=== PATIENT | female | born 1965 | race African-American/Black ===

== ENCOUNTER 2016-07-13 13:22 | Emergency (ER) | payer OTHER ==
--- NOTE | 2016-07-13 13:57 | ED Physician Documentation ---
Headache - HPI Stated Complaint: headache Chief Complaint: Headache Timing: abrupt, still present Severity: moderate Quality: similar to previous Associated Symptoms: sensitivity to light. denies: fever, chills Exacerbated By: light, noise Further Comments: yes (several hour history of migrain headache. Took some tramadol earlier today and did not seem to help. No precipitating factor noted. Worse with light and noise exposure. Has been months since her last headache. Feels like visegrip around the neck, bilateral. Nauseated.) - ROS NEURO/PSYCH: denies: confusion, anxiety all systems neg except as marked: Yes - PAST HX Medical History: hypertension, other (migrain headache, OA) Allergies/Adverse Reactions: Allergies Allergy/AdvReac Type Severity Reaction Status Date / Time No Known Allergies Allergy Verified 03/11/16 14:58 Home Medications: Ambulatory Orders Medication Instructions Recorded Azithromycin [Zithromax] 250 mg PO DAILY #6 tablet 03/11/16 Butalb/Acetaminophen/Caffeine 1 each PO QID PRN #10 capsule 03/11/16 [Fioricet 50-300-40 mg Capsule] Promethazine HCl [Phenergan] 25 mg PO QID PRN #10 tablet 03/11/16 - SOCIAL HX Smoking History: less than 1 pack/day (1/2 ppd) Alcohol Use: none Drug Use: none - Family HX Family History: none - VITAL SIGNS Vital Signs: Vital Signs Temp Pulse Resp BP Pulse Ox 97.8 F 68 16 91/52 97 07/13/16 13:25 07/13/16 13:25 07/13/16 13:25 07/13/16 13:25 07/13/16 13:25 Progress - Progress Progress: 14:38 About 50% of headache gone, feels that she can go home and rest. Nausea improved. ED Results Lab/Radiology - Orders Orders: ED Orders Category Date Time Status Haloperidol Lactate [Haldol] Med 07/13/16 14:05 Discontinued 10 mg IM NOW ONE Ketorolac Tromethamine [Toradol] Med 07/13/16 14:05 Discontinued 60 mg IM NOW ONE Ondansetron HCl/Pf [Zofran 4 mg/2 ml] Med 07/13/16 14:05 Discontinued 8 mg IM NOW ONE Headache Physical Exam - EXAM General Appearance: alert, moderate distress EENT: no facial swelling, eyes nml inspection, PERRL, photophobia. No: tender temporal artery, pain over sinuses, abnml papilledema Neck: normal inspection, thyroid normal, supple Respiratory: no resp distress, chest non-tender, breath sounds normal. No: wheezes, rales, rhonchi CVS: reg. rate & rhythm, heart sounds nml, murmur Abdomen: non-tender, no organomegaly, nml bowel sounds Skin: color nml, no rash - NEURO/PSYCH Higher Functions: alert, oriented x3, nml speech, mood/affect nml. denies: confused Cranial: nml as tested, no evidence of acute CVA Cerebellar: nml as tested Sensorimotor: motor nml, sensation nml. denies: weakness Discharge Clincal Impression: Migraine Additional Instructions: Home and rest in a quiet room. Do not drive for several hours. Continue with your home medications. Home Medications: Ambulatory Orders Azithromycin [Zithromax] 250 mg PO DAILY #6 tablet 03/11/16 Butalb/Acetaminophen/Caffeine [Fioricet 50-300-40 mg Capsule] 1 each PO QID PRN #10 capsule 03/11/16 Promethazine HCl [Phenergan] 25 mg PO QID PRN #10 tablet 03/11/16 Condition: Stable Disposition: 01 HOME, SELF-CARE Decision to Admit: NO Date of Decison to Admit: 07/13/16 Decision Time: 14:54
[2016-07-13] MEDS ORDERED: HALOPERIDOL LACTATE 5 MG/ML VIAL IM ONE (14:05)
[2016-07-13] MEDS ORDERED: KETOROLAC TROMETHAMINE 60 MG/2 ML VIAL IM ONE (14:05)
[2016-07-13] MEDS ORDERED: ONDANSETRON HCL/PF 4 MG/ 2ML VIAL IM ONE (14:05)
[2016-07-13 15:11] VITALS: BP 102/72
== END 2016-07-13 15:07 | disposition home or self-care (01) ==
LOC: ED 13:22
DX: G43.909 Migraine, unspecified, not intractable, without status migrainosus (principal)
CPT/HCPCS: 99283

== ENCOUNTER 2016-11-06 13:54 | Emergency (ER) | payer SELFPAY ==
--- NOTE | 2016-11-06 14:00 | ED Physician Documentation ---
Headache - HISTORIAN Historian: patient - HPI Chief Complaint: Headache Onset: hours (2) Timing: abrupt Exposure To: none Severity: moderate Quality: similar to previous Associated Symptoms: denies: fever, chills Preceding Symptoms: denies: visual disturbance Exacerbated By: light, noise, movement - ROS NEURO/PSYCH: denies: confusion - PAST HX Medical History: hypertension, migraines, other (OA) Surgical History: other (c section, hysterectomy, endometrila Bx) Immunizations: referred to PCP Allergies/Adverse Reactions: Allergies Allergy/AdvReac Type Severity Reaction Status Date / Time No Known Allergies Allergy Verified 11/06/16 14:13 - SOCIAL HX Smoking History: greater than 1 pack/day (1 ppd) Alcohol Use: none Drug Use: none - Family HX Family History: none - VITAL SIGNS Vital Signs: Vital Signs Temp Pulse Resp BP Pulse Ox 67 20 122/72 98 11/06/16 14:58 11/06/16 14:58 11/06/16 14:58 11/06/16 14:58 - REVIEWED ASSESSMENTS Nursing Assessment Reviewed: Yes Vitals Reviewed: Yes Progress - Progress Progress: 14:36 Pain is better, feels that she can manage it at home. ED Results Lab/Radiology - Orders Orders: ED Orders Category Date Time Status Haloperidol Lactate [Haldol] Med 11/06/16 14:12 Discontinued 10 mg IM NOW ONE Ketorolac Tromethamine [Toradol] Med 11/06/16 14:13 Discontinued 60 mg IM NOW ONE Ondansetron HCl Rapdis [Zofran Odt] Med 11/06/16 14:13 Discontinued 4 mg PO NOW ONE Headache Physical Exam - EXAM General Appearance: alert, mild distress EENT: no facial swelling, eyes nml inspection, PERRL. No: tender temporal artery, pain over sinuses Neck: normal inspection, thyroid normal, supple. No: lymphadenopathy, stiff neck, meningismus Respiratory: no resp distress, chest non-tender, rales (RLL posteriorly) CVS: reg. rate & rhythm, heart sounds nml. No: murmur Abdomen: non-tender, no organomegaly, nml bowel sounds, no distention - NEURO/PSYCH Higher Functions: alert, oriented x3, nml speech, mood/affect nml. denies: confused Cranial: nml as tested, no evidence of acute CVA Cerebellar: nml as tested Sensorimotor: motor nml, sensation nml. denies: weakness, aphasia, pronator drift Discharge Clincal Impression: Bronchitis Migraine Qualifiers: Migraine type: without aura Status migrainosus presence: without status migrainosus Intractability: not intractable Qualified Code(s): G43.009 - Migraine without aura, not intractable, without status migrainosus Referrals: Milo Osei MD [Primary Care Provider] - 2 Days Condition: Stable Disposition: 01 HOME, SELF-CARE Decision to Admit: NO Date of Decison to Admit: 11/06/16 Decision Time: 14:34
[2016-11-06] MEDS: KETOROLAC TROMETHAMINE 60 MG/2 ML VIAL IM ONE (14:20)
[2016-11-06] MEDS: HALOPERIDOL LACTATE 5 MG/ML VIAL IM ONE (14:20)
[2016-11-06] MEDS: ONDANSETRON HCL 4 MG TAB.RAPDIS PO ONE (14:20)
[2016-11-06 15:00] VITALS: BP 122/72
== END 2016-11-06 14:58 | disposition home or self-care (01) ==
LOC: ED 13:54
DX: J20.9 Acute bronchitis, unspecified (principal); G43.009 Migraine without aura, not intractable, without status migrainosus
CPT/HCPCS: A9270; J1630; J1885; 96372; 99283

== ENCOUNTER 2017-01-30 01:24 | Emergency (ER) | payer SELFPAY ==
--- NOTE | 2017-01-30 01:36 | ED Physician Documentation ---
Headache - HISTORIAN Historian: patient - HPI Chief Complaint: Headache Onset: hours (1 hour) New Gradual Onset: Yes Exposure To: none Severity: moderate Quality: similar to previous Associated Symptoms: fever. denies: chills Preceding Symptoms: visual disturbance Further Comments: yes (pain behind the left eye, no precipitating factor noted. Lights and sound seems to bother it.) - ROS NEURO/PSYCH: denies: confusion, anxiety CVS/RESP: chest pain, cough all systems neg except as marked: Yes - PAST HX Medical History: other (HTN, obesity, Generalized OA) Surgical History: cholecystectomy, other (c section) Immunizations: referred to PCP Allergies/Adverse Reactions: Allergies Allergy/AdvReac Type Severity Reaction Status Date / Time No Known Allergies Allergy Verified 01/30/17 01:47 - SOCIAL HX Smoking History: less than 1 pack/day (1/2 ppd) Alcohol Use: none Drug Use: none - Family HX Family History: none, other (mother lung cancer) - VITAL SIGNS Vital Signs: Vital Signs Temp Pulse Resp BP Pulse Ox 131/83 11/08/16 21:28 - REVIEWED ASSESSMENTS Nursing Assessment Reviewed: Yes Vitals Reviewed: Yes ED Results Lab/Radiology - Orders Orders: ED Orders Category Date Time Status Haloperidol Lactate [Haldol] Med 01/30/17 01:43 Discontinued 10 mg IM NOW ONE Ketorolac Tromethamine [Toradol] Med 01/30/17 01:45 Discontinued 60 mg IM NOW ONE Ondansetron HCl Rapdis [Zofran Odt] Med 01/30/17 01:44 Ordered 4 mg PO Q6H PRN Headache Physical Exam - EXAM General Appearance: alert, moderate distress EENT: no facial swelling, eyes nml inspection, pharynx nml. No: tender temporal artery Neck: normal inspection, thyroid normal, supple Respiratory: no resp distress, chest non-tender, breath sounds normal. No: wheezes, rales, rhonchi CVS: reg. rate & rhythm, heart sounds nml, murmur Abdomen: no organomegaly, nml bowel sounds, no distention, tenderness (mild diffuse tenderness) Skin: color nml, no rash - NEURO/PSYCH Higher Functions: alert, oriented x3, nml speech, mood/affect nml Cranial: nml as tested, no evidence of acute CVA Cerebellar: nml as tested Sensorimotor: motor nml, sensation nml. denies: weakness Discharge Clincal Impression: Migraine Referrals: Milo Osei MD [Primary Care Provider] - 2 Days Condition: Stable Disposition: 01 HOME, SELF-CARE Decision to Admit: NO Date of Decison to Admit: 01/30/17 Decision Time: 02:17
[2017-01-30] MEDS ORDERED: ONDANSETRON HCL 4 MG TAB.RAPDIS ONE (01:53)
[2017-01-30] MEDS: ONDANSETRON HCL 4 MG TAB.RAPDIS PO PRN (02:00)
[2017-01-30] MEDS: KETOROLAC TROMETHAMINE 60 MG/2 ML VIAL IM ONE (02:00)
[2017-01-30] MEDS: HALOPERIDOL LACTATE 5 MG/ML VIAL IM ONE (02:00)
[2017-01-30 03:09] VITALS: BP 130/61
== END 2017-01-30 02:45 | disposition home or self-care (01) ==
LOC: ED 01:24
DX: G43.909 Migraine, unspecified, not intractable, without status migrainosus (principal)
CPT/HCPCS: A9270; J1630; J1885; 96372; 99283

== ENCOUNTER 2017-04-27 11:09 | Emergency (ER) | payer SELFPAY ==
[2017-04-27 11:24] VITALS: BP 121/70
--- NOTE | 2017-04-27 11:26 | ED Physician Documentation ---
General Adult - HISTORIAN Historian: patient - HPI Stated Complaint: Rt ear/jaw pain for 4-5 days, nasal congestion Chief Complaint: General Adult Onset: days ago (5) Timing: still present Severity: moderate Further Comments: yes (Pt is a 52 yo female with pain in her R jaw, radiating to her R ear. Pt has had congestion. No cough or fever.) - ROS CONST: other (malaise) EYES/ENT: nasal congestion, other (R ear pain) CVS/RESP: none GI/: none MS/SKIN/LYMPH: none - PAST HX Past History: other (OA, fibromyalgia) Allergies/Adverse Reactions: Allergies Allergy/AdvReac Type Severity Reaction Status Date / Time No Known Allergies Allergy Verified 04/27/17 11:24 - SOCIAL HX Smoking History: quit greater than 1 year - FAMILY HX Family History: No - VITAL SIGNS Vital Signs: Vital Signs Temp Pulse Resp BP Pulse Ox 99.0 F 70 16 121/70 99 04/27/17 11:10 04/27/17 11:10 04/27/17 11:10 04/27/17 11:10 04/27/17 11:10 - REVIEWED ASSESSMENTS Nursing Assessment Reviewed: Yes Vitals Reviewed: Yes Progress - Progress Progress: Rx Amoxicillin 500 mg. Take one by mouth every 8 hrs for 10 days. General Adult Physical Exam - PHYSICAL EXAM GENERAL APPEARANCE: mild distress EENT: eye inspection normal, TM erythema (R) NECK: normal inspection, supple, lymphadenopathy RESPIRATORY: no resp distress, chest non-tender, breath sounds normal CVS: reg rate & rhythm, heart sounds normal BACK: normal inspection SKIN: warm/dry, normal color EXTREMITIES: non-tender, normal range of motion, no evidence of injury NEURO: oriented X3, motor nml, sensation nml Discharge Clincal Impression: R ear pain Referrals: Milo Osei MD [Primary Care Provider] - Condition: Good Decision to Admit: NO Decision Time: 11:28
== END 2017-04-27 11:30 | disposition home or self-care (01) ==
LOC: ED 11:09
DX: H92.01 Otalgia, right ear (principal)
CPT/HCPCS: 99283

== ENCOUNTER 2017-08-19 14:59 | Emergency (ER) | payer SELFPAY ==
[2017-08-19] MEDS ORDERED: HALOPERIDOL LACTATE 5 MG/ML VIAL IM ONE (15:09)
[2017-08-19] MEDS ORDERED: KETOROLAC TROMETHAMINE 60 MG/2 ML VIAL IM ONE (15:10)
[2017-08-19] MEDS ORDERED: ONDANSETRON HCL/PF 4 MG/ 2ML VIAL IM ONE (15:10)
--- NOTE | 2017-08-19 15:15 | ED Physician Documentation ---
General Adult - HISTORIAN Historian: patient - HPI Stated Complaint: Headache Chief Complaint: General Adult Onset: hours Timing: still present Severity: moderate Further Comments: yes (Pt is a 52 yo female with a migraine headache. Headache is similar to previous migraines. Pt has photophobia and nausea. She says it it 9/10 in severity.) - ROS CONST: no problems EYES/ENT: none CVS/RESP: none GI/: nausea MS/SKIN/LYMPH: none NEURO/PSYCH: headache - PAST HX Past History: other (HTN, obesity, generalized OA, migraine) Surgeries/Procedures: , cholecystectomy Allergies/Adverse Reactions: Allergies Allergy/AdvReac Type Severity Reaction Status Date / Time No Known Allergies Allergy Verified 04/27/17 11:24 Home Medications: Ambulatory Orders Medication Instructions Recorded Amoxicillin [Trimox] 500 mg PO TID #30 capsule 04/27/17 Methocarbamol [Robaxin] 500 mg PO PRN PRN 04/27/17 Triamterene/Hctz [Dyazide 37.5/25] 1 tab PO D 04/27/17 - SOCIAL HX Smoking History: less than 1 pack/day Alcohol Use: none Drug Use: none - FAMILY HX Family History: Yes (mother: lung cancer) - VITAL SIGNS Vital Signs: Vital Signs Temp Pulse Resp BP Pulse Ox 97 F L 71 18 122/78 98 08/19/17 14:59 08/19/17 14:59 08/19/17 14:59 08/19/17 14:59 08/19/17 14:59 - REVIEWED ASSESSMENTS Nursing Assessment Reviewed: Yes Vitals Reviewed: Yes Progress - Progress Progress: Haldol 10 mg IM Zofran 4 mg IM Toradol 60 mg IM improved ED Results Lab/Radiology - Orders Orders: ED Orders Category Date Time Status Haloperidol Lactate [Haldol] Med 08/19/17 15:09 Discontinued 10 mg IM NOW ONE Ketorolac Tromethamine [Toradol] Med 08/19/17 15:10 Discontinued 60 mg IM NOW ONE Ondansetron HCl/Pf [Zofran 4 mg/2 ml] Med 08/19/17 15:10 Discontinued 4 mg IM NOW ONE General Adult Physical Exam - PHYSICAL EXAM GENERAL APPEARANCE: moderate distress EENT: eye inspection normal, pharynx normal NECK: normal inspection, supple RESPIRATORY: no resp distress, chest non-tender, breath sounds normal CVS: reg rate & rhythm, heart sounds normal ABDOMEN: soft, no organomegaly, normal bowel sounds BACK: normal inspection SKIN: warm/dry, normal color EXTREMITIES: non-tender, normal range of motion, no evidence of injury NEURO: oriented X3, CN's nml as tested, motor nml, sensation nml Discharge Clincal Impression: Migraine Qualifiers: Migraine type: unspecified Status migrainosus presence: without status migrainosus Intractability: not intractable Qualified Code(s): G43.909 - Migraine, unspecified, not intractable, without status migrainosus Referrals: Milo Osei MD [Primary Care Provider] - Condition: Stable Disposition: 01 HOME, SELF-CARE Decision to Admit: NO Decision Time: 15:22
[2017-08-19 15:32] VITALS: BP 141/78
== END 2017-08-19 15:30 | disposition home or self-care (01) ==
LOC: ED 14:59
DX: G43.909 Migraine, unspecified, not intractable, without status migrainosus (principal)
CPT/HCPCS: J1630; J1885; J2405; 96374; 96375; 99283

== ENCOUNTER 2017-08-21 13:06 | Emergency (ER) | payer OTHER ==
--- NOTE | 2017-08-21 13:10 | ED Physician Documentation ---
General Adult - HISTORIAN Historian: patient - HPI Stated Complaint: possible tongue swelling Chief Complaint: Facial Injury Onset: other (she states she woke up this am and had swelling in her tongue ) Timing: still present Severity: mild Further Comments: yes (She reports she woke this am feeling short of breath because she felt her tongue was swollen. She is tearful. States she was scared she was going to swallow her tongue. She states she was told by the ambulance worker her lips were swollen so she if feeling anxious she will swallow her tongue. No other complaints) - ROS CONST: recent illness (treated in ER for migraine yesterday ). denies: fever EYES/ENT: denies: problems with vision CVS/RESP: denies: chest pain, shortness of breath, cough GI/: none MS/SKIN/LYMPH: denies: rash - PAST HX Past History: none Other History: none Surgeries/Procedures: other Immunizations: UTD Allergies/Adverse Reactions: Allergies Allergy/AdvReac Type Severity Reaction Status Date / Time No Known Allergies Allergy Verified 08/21/17 13:17 Home Medications: Ambulatory Orders Medication Instructions Recorded Methocarbamol [Robaxin] 500 mg PO PRN PRN 04/27/17 - SOCIAL HX Smoking History: non-smoker Alcohol Use: none Drug Use: none - FAMILY HX Family History: No - VITAL SIGNS Vital Signs: Vital Signs Temp Pulse Resp BP Pulse Ox 122/78 08/19/17 15:30 - REVIEWED ASSESSMENTS Nursing Assessment Reviewed: Yes Vitals Reviewed: Yes Progress - Progress Progress: 1341: she is able to talk normally. no swelling of lips or tongue. Airway open. DG General Adult Physical Exam - PHYSICAL EXAM GENERAL APPEARANCE: mild distress EENT: eye inspection normal, ENT inspection normal, pharynx normal, TM's nml NECK: normal inspection RESPIRATORY: no resp distress, chest non-tender, breath sounds normal CVS: reg rate & rhythm, heart sounds normal ABDOMEN: soft, normal bowel sounds SKIN: warm/dry, normal color EXTREMITIES: non-tender, normal range of motion, no evidence of injury, no edema NEURO: oriented X3, CN's nml as tested, motor nml, sensation nml, mood/affect nml, cognition normal Discharge Clincal Impression: Tongue abnormality Referrals: Milo Osei MD [Primary Care Provider] - 2 Days Additional Instructions: 1. increase fluids 2. Follow up with PCP in 2 days 3. Return to ER for any changes in symptoms or concerns 4. Ativan 0.5 mg every 8 hours as needed for anxiety 5. Benadryl OTC for any concerns of reaction Condition: Stable Disposition: 01 HOME, SELF-CARE Decision to Admit: NO Date of Decison to Admit: 08/21/17 Decision Time: 13:47
[2017-08-21] MEDS: LORazepam 2 MG/ML VIAL IM ONE (13:25)
[2017-08-21] MEDS: LORazepam 2 MG/ML VIAL ONE (13:25)
[2017-08-21 14:01] VITALS: BP 112/71
== END 2017-08-21 14:00 | disposition home or self-care (01) ==
LOC: ED 13:06
DX: R60.9 Edema, unspecified (principal)
CPT/HCPCS: 96372; 99282; J2060

== ENCOUNTER 2017-10-13 14:11 | Emergency (ER) | payer OTHER ==
--- NOTE | 2017-10-13 14:18 | ED Physician Documentation ---
General Adult - HISTORIAN Historian: patient - HPI Stated Complaint: tooth pain Chief Complaint: Dental Pain Onset: days ago (5) Timing: still present Severity: moderate Further Comments: yes (She reports she was on tramodol for pain and amoxicillin for infection of her tooth (left back upper) and she had an appt with dental but she could not afford the co pay and over the last two days (more today) her pain is increasing she rates it 6 /10 and she has tried other options. She denies a fever.) - ROS CONST: no problems NEURO/PSYCH: headache - PAST HX Past History: none Surgeries/Procedures: other Immunizations: UTD Allergies/Adverse Reactions: Allergies Allergy/AdvReac Type Severity Reaction Status Date / Time No Known Allergies Allergy Verified 10/13/17 14:30 Home Medications: Ambulatory Orders Medication Instructions Recorded Methocarbamol 10/13/17 - SOCIAL HX Smoking History: non-smoker Alcohol Use: none Drug Use: none - FAMILY HX Family History: No - VITAL SIGNS Vital Signs: Vital Signs Temp Pulse Resp BP Pulse Ox 112/71 08/21/17 14:00 - REVIEWED ASSESSMENTS Nursing Assessment Reviewed: Yes Vitals Reviewed: Yes Progress - Progress Progress: 1450: Improvement in pain and she would like to go home DG General Adult Physical Exam - PHYSICAL EXAM GENERAL APPEARANCE: mild distress EENT: eye inspection normal, other (left upper back tooth with decay. No obvious dischage. Tooth is broken. Gum is normal) NECK: normal inspection RESPIRATORY: no resp distress, chest non-tender, breath sounds normal CVS: reg rate & rhythm, heart sounds normal, equal pulses ABDOMEN: soft, normal bowel sounds BACK: normal inspection SKIN: warm/dry, normal color EXTREMITIES: non-tender, normal range of motion, no evidence of injury, no edema NEURO: oriented X3, CN's nml as tested, motor nml, sensation nml, mood/affect nml, cognition normal Discharge Clincal Impression: Pain, dental Referrals: Milo Osei MD [Primary Care Provider] - 2 Days Comments: 1. Continue meds as prescribed 2. Warm salt water gargles 3. Follow up with dental or PCP for pain concerns 4. Return to ER for uncontrolled pain or other concerns Condition: Stable Disposition: 01 HOME, SELF-CARE Decision to Admit: NO Date of Decison to Admit: 10/13/17 Decision Time: 14:42
[2017-10-13 14:30] VITALS: BP 124/69
[2017-10-13] MEDS ORDERED: fentaNYL CITRATE/PF 100 MCG/ 2ML AMP IM ONE (14:31)
== END 2017-10-13 14:50 | disposition home or self-care (01) ==
LOC: ED 14:11
DX: K08.89 Other specified disorders of teeth and supporting structures (principal)
CPT/HCPCS: 96372; 99284; J3010

== ENCOUNTER 2017-11-13 13:47 | Emergency (ER) | payer OTHER ==
--- NOTE | 2017-11-13 13:48 | ED Physician Documentation ---
General Adult - HISTORIAN Historian: patient - HPI Stated Complaint: dental pain /headache Chief Complaint: Dental Pain Onset: other (chronic - she has had chronic pain in her teeth for years ) Timing: still present Severity: moderate Further Comments: yes (she states that she has dental issues and she does not have the cal[place] to pay so she does not have the calderon to have them self pay) Last known Well Code/Unknown Code: Unknown - ROS CONST: no problems EYES/ENT: none CVS/RESP: none GI/: none MS/SKIN/LYMPH: none NEURO/PSYCH: headache - PAST HX Past History: other Other History: none Surgeries/Procedures: other Immunizations: UTD Allergies/Adverse Reactions: Allergies Allergy/AdvReac Type Severity Reaction Status Date / Time No Known Allergies Allergy Verified 11/13/17 14:35 Home Medications: Ambulatory Orders Medication Instructions Recorded Methocarbamol 500 mg PO DAILY 10/13/17 - SOCIAL HX Smoking History: non-smoker Alcohol Use: none Drug Use: none - FAMILY HX Family History: No - VITAL SIGNS Vital Signs: Vital Signs Temp Pulse Resp BP Pulse Ox 124/69 10/13/17 14:59 - REVIEWED ASSESSMENTS Nursing Assessment Reviewed: Yes Vitals Reviewed: Yes Progress - Progress Progress: 1455: States pain is "much better" and she is requesting to go home - she did get a friend to give her a ride DG General Adult Physical Exam - PHYSICAL EXAM GENERAL APPEARANCE: no distress EENT: eye inspection normal, ENT inspection normal, [place] NECK: normal inspection RESPIRATORY: no resp distress, chest non-tender, breath sounds normal CVS: reg rate & rhythm, heart sounds normal, equal pulses ABDOMEN: soft BACK: normal inspection SKIN: warm/dry, normal color EXTREMITIES: non-tender, normal range of motion, no evidence of injury, no edema NEURO: oriented X3, CN's nml as tested, motor nml, sensation nml, mood/affect nml, cognition normal Discharge Clincal Impression: Pain, dental Referrals: Milo Osei MD [Primary Care Provider] - 2 Days Additional Instructions: 1. Warm salt water gargles 2. Follow up with PCP 3. See dental 4. Return to ER for any increased concerns Condition: Stable Disposition: 01 HOME, SELF-CARE Decision to Admit: NO Date of Decison to Admit: 11/13/17 Decision Time: 15:01
[2017-11-13] MEDS ORDERED: methylPREDNISolone ACETATE 40 MG/ML VIAL IM ONE (14:25)
[2017-11-13] MEDS ORDERED: KETOROLAC TROMETHAMINE 60 MG/2 ML VIAL IM ONE (14:25)
[2017-11-13] MEDS ORDERED: fentaNYL CITRATE/PF 100 MCG/ 2ML AMP IM ONE (14:39)
[2017-11-13 15:18] VITALS: BP 114/85
== END 2017-11-13 15:11 | disposition home or self-care (01) ==
LOC: ED 13:47
DX: K08.89 Other specified disorders of teeth and supporting structures (principal)
CPT/HCPCS: J1030; J3010; 99283

== ENCOUNTER 2017-11-24 04:56 | Emergency (ER) | payer OTHER ==
[2017-11-24] MEDS: 0.9 % SODIUM CHLORIDE 1,000 ML IV ONE ×2 (05:40→05:53)
[2017-11-24] MEDS: diphenhydrAMINE HCL 50 MG/ML VIAL IVP ONE (05:45)
[2017-11-24] MEDS: DEXAMETHASONE SOD PHOS 4 MG/ML VIAL IVP ONE (05:46)
[2017-11-24] MEDS: PROMETHAZINE HCL 25 MG/ML VIAL IM ONE (05:47)
[2017-11-24] MEDS: KETOROLAC TROMETHAMINE 30 MG/1ML VIAL IVP ONE (05:50)
[2017-11-24 05:54] LABS: eGFR (African) > 60; eGFR (Non-African) > 60
[2017-11-24] MEDS: 0.9 % SODIUM CHLORIDE 500 ML IV ONE (05:57)
[2017-11-24 06:17] LABS: EOSINOPHILS % 2.7 % (0.0-6.8); MEAN CORPUSCULAR HEMOGLOBIN 27.5 pg (28.0-34.0); MEAN CORPUSCULAR VOLUME 86.6 fl (80.0-100.0)
[2017-11-24 06:18] LABS: BASOPHILS % 0.5 (0.0-1.5)
[2017-11-24 06:23] VITALS: BP 146/84
--- NOTE | 2017-11-24 06:38 | ED Physician Documentation ---
Headache - HISTORIAN Historian: patient - HPI Stated Complaint: SOA, dizziness Chief Complaint: Headache Onset: hours Timing: still present, worse New Gradual Onset: No Exposure To: none Severity: severe Quality: similar to previous, pain Associated Symptoms: sensitivity to light, nausea, vomiting, dizziness. denies : fever, chills, sweating, problems with vision, neck pain, stiffness, speech problems, weakness, trouble walking, tingling, numbness, light-headedness Exacerbated By: light, noise, movement Further Comments: yes (52 year old female patient presents with complaint of headache, dizziness and panic attack symptoms. 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 History of migraines.) - ROS NEURO/PSYCH: denies: confusion, anxiety, depression, fainting, other EYES/ENT: denies: sore throat, difficulty swallowing, sinus pain, drainage, other CVS/RESP: shortness of breath (mild). denies: chest pain, cough GI/: denies: abdominal pain, diarrhea, problems urinating, incontinence, other MS/SKIN/LYMPH: denies: muscle aches, back pain, rash, skin lesions, swollen glands, other all systems neg except as marked: Yes - PAST HX Medical History: migraines Allergies/Adverse Reactions: Allergies Allergy/AdvReac Type Severity Reaction Status Date / Time No Known Allergies Allergy Verified 11/13/17 14:35 Home Medications: Ambulatory Orders Medication Instructions Recorded Methocarbamol 500 mg PO DAILY 10/13/17 - SOCIAL HX Smoking History: non-smoker Alcohol Use: none - Family HX Family History: denies: none - VITAL SIGNS Vital Signs: Vital Signs Temp Pulse Resp BP Pulse Ox 98.6 F 62 16 146/84 99 11/24/17 05:00 11/24/17 06:22 11/24/17 06:22 11/24/17 06:22 11/24/17 06:22 - REVIEWED ASSESSMENTS Nursing Assessment Reviewed: Yes Vitals Reviewed: Yes Progress - Progress Progress: Patient laughing, sitting up on side of stretcher after medications and IV fluids. Discharged home. Do not drive Patient seen driving from ER. ED Results Lab/Radiology - Lab Results Lab Results: Lab Results 11/24/17 11/24/17 05:25 05:25 WBC 5.86 K/ul K/ul (4.00-12.00) RBC 5.21 M/ul H M/ul (3.90-5.20) Hgb 14.3 g/dL g/dL (12.0-16.0) Hct 45.2 % % (34.5-46.5) MCV 86.6 fl fl (80.0-100.0) MCH 27.5 pg L pg (28.0-34.0) MCHC 31.7 g/dL g/dL (30.0-36.0) RDW 12.0 % % (11.3-14.3) Plt Count 267 K/mm3 K/mm3 (130-400) Neut % (Auto) 33.8 % L % (39.0-79.0) Lymph % (Auto) 57.2 % H % (16.0-50.0) [place] % (Auto) 3.0 % % (0.0-11.0) Eos % (Auto) 2.7 % % (0.0-6.8) Baso % (Auto) 0.5 (0.0-1.5) Neut # (Auto) 2.0 # k/uL # k/uL (1.4-7.7) Lymph # (Auto) 3.4 # k/uL # k/uL (0.6-4.0) [place] # (Auto) 0.2 # k/uL # k/uL (0.0-0.9) Eos # (Auto) 0.2 # k/uL # k/uL (0.0-0.6) Baso # (Auto) 0.0 # k/uL # k/uL (0.0-0.5) Reactive Lymphs % Pending Reactive Lymphs # Pending Sodium 136 mmol/L mmol/L (136-145) Potassium 3.8 mmol/L mmol/L (3.5-5.1) Chloride 97 mmol/L L mmol/L (98-107) Carbon Dioxide 28 mmol/L mmol/L (22-30) BUN 15 mg/dL mg/dL (7-17) Creatinine 1.10 mg/dL H mg/dL (0.52-1.04) Estimated Creat Clear 125 Est GFR ( Amer) > 60 (60 - ) Est GFR (Non-Af Amer) > 60 (60 - ) Glucose 110 mg/dL H mg/dL (74-106) Calcium 9.7 mg/dL mg/dL (8.4-10.2) Total Bilirubin 0.6 mg/dL mg/dL (0.2-1.3) AST 25 U/L U/L (15-46) ALT 22 U/L U/L (13-69) Alkaline Phosphatase 151 U/L H U/L (38-126) Total Protein 7.2 g/dL g/dL (6.3-8.2) Albumin 4.0 g/dL g/dL (3.5-5.0) - Orders Orders: ED Orders Category Date Time Status Place IV Lock 1T Care 11/24/17 05:13 Active CBC/PLATELET/DIFF Routine Lab 11/24/17 05:25 Results CMP Routine Lab 11/24/17 05:25 Completed 0.9 % Sodium Chloride [Normal Saline] 1,000 ml Med 11/24/17 05:18 Discontinued IV .STK-MED 0.9 % Sodium Chloride [Normal Saline] 1,000 ml Med 11/24/17 05:17 Discontinued IV NOW 0.9 % Sodium Chloride [Normal Saline] 500 ml Med 11/24/17 05:15 Discontinued IV NOW Dexamethasone Sod Phosphate [Decadron] Med 11/24/17 05:13 Discontinued 4 mg IVP NOW ONE Ketorolac Tromethamine [Toradol] Med 11/24/17 05:13 Discontinued 30 mg IVP NOW ONE Promethazine HCl [Phenergan] Med 11/24/17 05:13 Discontinued 25 mg IM NOW ONE diphenhydrAMINE HCL [Benadryl] Med 11/24/17 05:13 Discontinued 25 mg IVP NOW ONE Headache Physical Exam - EXAM General Appearance: moderate distress EENT: no facial swelling, eyes nml inspection, PERRL Respiratory: no resp distress, chest non-tender, breath sounds normal CVS: reg. 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
== END 2017-11-24 06:40 | disposition home or self-care (01) ==
LOC: ED 04:56
DX: G44.209 Tension-type headache, unspecified, not intractable (principal)
CPT/HCPCS: 80053; 85025; J1100; J1200; J1885; J2550; J7060; 96365; 96372; 96375; 99284; S1016

== ENCOUNTER 2017-11-26 15:16 | Emergency (ER) | payer OTHER ==
--- NOTE | 2017-11-26 15:37 | ED Physician Documentation ---
General Adult - HISTORIAN Historian: patient - HPI Stated Complaint: diarrhea Chief Complaint: General Adult Onset: days ago (1) Timing: still present Severity: moderate Further Comments: yes (Pt is a 52 yo female with diarrhea x 3 days. No blood seen in BM. Pt has been lightheaded at times. No n/v. No fever.) - ROS CONST: weakness EYES/ENT: none CVS/RESP: none GI/: diarrhea MS/SKIN/LYMPH: none NEURO/PSYCH: other (lightheaded) - PAST HX Past History: other (osteoarthritis, migraines.) Surgeries/Procedures: cholecystectomy Allergies/Adverse Reactions: Allergies Allergy/AdvReac Type Severity Reaction Status Date / Time No Known Allergies Allergy Verified 11/13/17 14:35 Home Medications: Ambulatory Orders Medication Instructions Recorded Methocarbamol 500 mg PO DAILY 10/13/17 Ciprofloxacin HCl [Cipro] 500 mg PO BID #10 tablet 11/26/17 - SOCIAL HX Smoking History: non-smoker - FAMILY HX Family History: No - VITAL SIGNS Vital Signs: Vital Signs Temp Pulse Resp BP Pulse Ox 146/84 11/24/17 06:22 - REVIEWED ASSESSMENTS Nursing Assessment Reviewed: Yes Vitals Reviewed: Yes Progress - Progress Progress: NS 1 L IVF improved Rx Ciprofloxacin 500 mg. Take one every 12 hrs for 5 days. General Adult Physical Exam - PHYSICAL EXAM GENERAL APPEARANCE: mild distress EENT: pharynx normal NECK: normal inspection, supple RESPIRATORY: no resp distress, chest non-tender, breath sounds normal CVS: reg rate & rhythm, heart sounds normal ABDOMEN: no organomegaly, normal bowel sounds, tenderness (mild diffuse) BACK: normal inspection, no CVA tenderness SKIN: warm/dry, normal color EXTREMITIES: non-tender, normal range of motion, no evidence of injury, no edema NEURO: oriented X3, motor nml, sensation nml Discharge Clincal Impression: Diarrhea Qualifiers: Diarrhea type: unspecified type Qualified Code(s): R19.7 - Diarrhea, unspecified Prescriptions: Ciprofloxacin HCl [Cipro] 500 mg PO BID #10 tablet Referrals: Milo Osei MD [Primary Care Provider] - Condition: Stable Disposition: 01 HOME, SELF-CARE Decision to Admit: NO Decision Time: 17:17
[2017-11-26] MEDS ORDERED: 0.9 % SODIUM CHLORIDE 1,000 ML IV ONE (15:42)
[2017-11-26 16:08] LABS: BASOPHILS % 0.5 (0.0-1.5); EOSINOPHILS % 1.6 % (0.0-6.8); MEAN CORPUSCULAR HEMOGLOBIN 27.6 pg (28.0-34.0); MEAN CORPUSCULAR VOLUME 86.7 fl (80.0-100.0); MONOCYTES % 3.2 % (0.0-11.0); NEUTROPHILS # 3.7 # k/uL (1.4-7.7)
[2017-11-26 16:28] LABS: eGFR (African) > 60; eGFR (Non-African) > 60
[2017-11-26 17:59] VITALS: BP 114/82
[2017-11-26 21:55] LABS: APPEARANCE,URINE CLEAR (CLEAR); COLOR,URINE YELLOW (YELLOW); OCCULT BLOOD,URINE NEGATIVE (NEGATIVE); UROBILINOGEN URINE 0.2 Eu (0.2-1.0)
== END 2017-11-26 17:38 | disposition home or self-care (01) ==
LOC: ED 15:16
DX: R19.7 Diarrhea, unspecified (principal)
CPT/HCPCS: 80053; 81002; 85025; J7030; 96365; 99284; S1016

== ENCOUNTER 2017-12-28 14:18 | Emergency (ER) | payer OTHER ==
--- NOTE | 2017-12-28 14:54 | ED Physician Documentation ---
Headache - HISTORIAN Historian: patient, friend - [facility] Chief Complaint: Headache Additional Information: [facility] ONSET NOON-LAST REV APPROX 1 MONTH AGO HAS AURA LIGHT SOUND SMELL SENSITIVE. RESPONDS USUALLY TO TORADOL PLUS IV MEDS' Onset: days ago (NOON) Timing: gradual (SIMILAR TO PREV [facility]) Exposure To: none Severity: moderate Quality: similar to previous Associated Symptoms: sensitivity to light, nausea. denies: fever, chills, sweating, neck pain, stiffness, trouble walking, tingling, numbness, dizziness Preceding Symptoms: visual disturbance Exacerbated By: light, noise, movement - ROS NEURO/PSYCH: denies: confusion, anxiety CVS/RESP: none GI/: denies: abdominal pain MS/SKIN/LYMPH: denies: muscle aches all systems neg except as marked: Yes - PAST HX Medical History: migraines, other (ANXIETY/PANIC DJD FIBROMYALGIA HTN) Surgical History: cholecystectomy Allergies/Adverse Reactions: Allergies Allergy/AdvReac Type Severity Reaction Status Date / Time No Known Allergies Allergy Verified 12/28/17 15:52 Home Medications: Ambulatory Orders Medication Instructions Recorded Methocarbamol 500 mg PO DAILY 10/13/17 - SOCIAL HX Smoking History: non-smoker Alcohol Use: none Drug Use: none - Family HX Family History: none - VITAL SIGNS Vital Signs: Vital Signs Temp Pulse Resp BP Pulse Ox 98.2 F 86 16 145/86 98 12/28/17 14:25 12/28/17 14:25 12/28/17 14:25 12/28/17 14:25 12/28/17 14:25 - REVIEWED ASSESSMENTS Nursing Assessment Reviewed: Yes Vitals Reviewed: Yes ED Results Lab/Radiology - Orders Orders: ED Orders Category Date Time Status 0.9 % Sodium Chloride [Normal Saline] 1,000 ml Med 12/28/17 14:42 Discontinued IV Q1H Dexamethasone Sod Phosphate [Decadron] Med 12/28/17 14:48 Discontinued 4 mg IVP NOW ONE Dextrose 5 % in Water [D5w] 500 ml Med 12/28/17 15:10 Discontinued IV .STK-MED Ketorolac Tromethamine [Toradol] Med 12/28/17 14:45 Discontinued 30 mg IVP NOW ONE LORazepam [Ativan] Med 12/28/17 15:22 Discontinued 1 mg IVP NOW ONE LORazepam [Ativan] Med 12/28/17 15:22 Discontinued 2 mg .ROUTE .STK-MED ONE Magnesium Sulfate Med 12/28/17 15:05 Discontinued 2 gm .ROUTE .STK-MED ONE Magnesium Sulfate 2 gm Med 12/28/17 14:47 Discontinued Dextrose 5 % in Water [D5w] 100 ml IV NOW Magnesium Sulfate/D5w [Magnesium-D5w 1 gm/100 ml Soln] Med 12/28/17 15:01 Discontinued 100 ml IV .STK-MED Metoclopramide HCl [Reglan] Med 12/28/17 14:46 Discontinued 5 mg PO NOW ONE Headache Physical Exam - EXAM General Appearance: moderate distress EENT: no facial swelling Neck: normal inspection, supple CVS: reg. rate & rhythm, heart sounds nml Skin: color nml, no rash. No: cyanosis, diaphoresis, pallor Extremitites: non-tender, normal range of motion, no evidence of injury - NEURO/PSYCH Higher Functions: alert, oriented x3 Sensorimotor: motor nml, sensation nml Discharge Clincal Impression: migraine cephalgia Referrals: Milo Osei MD [Primary Care Provider] - 2 Days Comments: pt states very much better alert cheerful Condition: Good Disposition: 01 HOME, SELF-CARE Decision to Admit: NO Decision Time: 17:16
[2017-12-28 15:18] VITALS: BP 145/86
[2017-12-28] MEDS: DEXAMETHASONE SOD PHOS 4 MG/ML VIAL IVP ONE (15:20)
[2017-12-28] MEDS: METOCLOPRAMIDE HCL 10 MG/2 ML VIAL PO ONE (15:20)
[2017-12-28] MEDS: 0.9 % SODIUM CHLORIDE 1,000 ML IV ONE (15:20)
[2017-12-28] MEDS: KETOROLAC TROMETHAMINE 30 MG/1ML VIAL IVP ONE (15:22)
[2017-12-28] MEDS: DEXTROSE 5 % IN WATER 500 ML IV ONE (15:25)
[2017-12-28] MEDS: MAGNESIUM SULFATE 1 GM/2ML VIAL ONE (15:25)
[2017-12-28] MEDS: LORazepam 2 MG/ML VIAL IVP ONE (15:35)
[2017-12-28] MEDS: MAGNESIUM SULFATE/D5W 0 ML IV ONE (15:36)
[2017-12-28] MEDS: MAGNESIUM SULFATE 2 GM in DEXTROSE 5 % IN WATER 100 ML IV STA ×2 (15:37)
[2017-12-28] MEDS: LORazepam 2 MG/ML VIAL ONE (15:37)
== END 2017-12-28 17:16 | disposition home or self-care (01) ==
LOC: ED 14:18
DX: G43.911 Migraine, unspecified, intractable, with status migrainosus (principal)
CPT/HCPCS: J1100; J1885; J2060; J3475; J7030; J7060; 96365; 96366; 96375; 99284; S1016

== ENCOUNTER 2017-12-31 13:52 | Emergency (ER) | payer OTHER ==
--- NOTE | 2017-12-31 15:39 | ED Physician Documentation ---
General Adult - HISTORIAN Historian: patient - HPI Stated Complaint: nausea Chief Complaint: General Adult Onset: hours Timing: still present Severity: moderate Further Comments: yes (Pt is a 52 yo female with n/v and c/o dizziness. Pt states she ate a bag of salty pistachio nuts yesterday and then drank a lot of soda and became ill.) - ROS CONST: weakness EYES/ENT: none CVS/RESP: none GI/: vomiting, nausea MS/SKIN/LYMPH: none - PAST HX Past History: other (anxiety, fibromyalgia, HTN, Migraines, OA) Surgeries/Procedures: cholecystectomy, other (C-sec, tonsillectomy, ortho surg.) Allergies/Adverse Reactions: Allergies Allergy/AdvReac Type Severity Reaction Status Date / Time No Known Allergies Allergy Verified 12/28/17 15:52 Home Medications: Ambulatory Orders Medication Instructions Recorded Methocarbamol 500 mg PO DAILY 10/13/17 - SOCIAL HX Smoking History: non-smoker - FAMILY HX Family History: No - VITAL SIGNS Vital Signs: Vital Signs Temp Pulse Resp BP Pulse Ox 66 15 126/81 97 12/31/17 13:52 12/31/17 13:52 12/31/17 13:52 12/31/17 13:52 - REVIEWED ASSESSMENTS Nursing Assessment Reviewed: Yes Vitals Reviewed: Yes Progress - Progress Progress: NS 1 L IVF Zofran 4 mg IV improved General Adult Physical Exam - PHYSICAL EXAM GENERAL APPEARANCE: mild distress EENT: pharynx normal NECK: normal inspection RESPIRATORY: no resp distress, chest non-tender, breath sounds normal CVS: reg rate & rhythm, heart sounds normal ABDOMEN: soft, normal bowel sounds, non-tender BACK: normal inspection, no CVA tenderness SKIN: warm/dry, normal color EXTREMITIES: non-tender, normal range of motion, no evidence of injury NEURO: oriented X3, motor nml, sensation nml Discharge Clincal Impression: Nausea & vomiting Qualifiers: Vomiting type: unspecified Vomiting Intractability: non-intractable Qualified Code(s): R11.2 - Nausea with vomiting, unspecified Referrals: Milo Osei MD [Primary Care Provider] - Condition: Stable Disposition: 01 HOME, SELF-CARE Decision to Admit: NO Decision Time: 17:11
[2017-12-31] MEDS ORDERED: ONDANSETRON HCL/PF 4 MG/ 2ML VIAL IVP ONE (15:40)
[2017-12-31] MEDS ORDERED: 0.9 % SODIUM CHLORIDE 1,000 ML IV ONE (15:40)
[2017-12-31 16:20] LABS: eGFR (African) > 60; eGFR (Non-African) 42
[2017-12-31 16:22] LABS: BASOPHILS % 0.3 (0.0-1.5); EOSINOPHILS % 1.9 % (0.0-6.8); MEAN CORPUSCULAR VOLUME 90.2 fl (80.0-100.0); NEUTROPHILS # 2.3 # k/uL (1.4-7.7)
[2017-12-31 17:21] VITALS: BP 112/74
[2017-12-31 23:05] LABS: APPEARANCE,URINE CLOUDY (CLEAR); COLOR,URINE YELLOW (YELLOW); OCCULT BLOOD,URINE NEGATIVE (NEGATIVE); PH URINE 7.5 (5.0 - 8.0); UROBILINOGEN URINE 0.2 Eu (0.2-1.0)
== END 2017-12-31 17:19 | disposition home or self-care (01) ==
LOC: ED 13:52
DX: R11.2 Nausea with vomiting, unspecified (principal)
CPT/HCPCS: 80053; 81002; 85025; J2405; J7030; 96365; 96375; 99284; S1016

== ENCOUNTER 2018-02-20 17:45 | Emergency (ER) | payer OTHER ==
--- NOTE | 2018-02-20 18:01 | ED Physician Documentation ---
General Adult - HISTORIAN Historian: patient - HPI Stated Complaint: migraine Chief Complaint: General Adult Onset: hours Timing: still present Severity: moderate Further Comments: yes (Pt is a 52 yo female with c/o migraine headaches. Headache is similar to previous migraines. Pt has nausea, photophobia. No extremity numbness/weakness or other focal sx.) - ROS CONST: no problems EYES/ENT: none CVS/RESP: none GI/: nausea MS/SKIN/LYMPH: none NEURO/PSYCH: headache - PAST HX Past History: other (Migraine, Fibromyalgia, HTN, OA) Surgeries/Procedures: , cholecystectomy Allergies/Adverse Reactions: Allergies Allergy/AdvReac Type Severity Reaction Status Date / Time No Known Allergies Allergy Verified 02/20/18 18:07 Home Medications: Ambulatory Orders Medication Instructions Recorded Methocarbamol 500 mg PO DAILY 10/13/17 - SOCIAL HX Smoking History: non-smoker - FAMILY HX Family History: No - VITAL SIGNS Vital Signs: Vital Signs Temp Pulse Resp BP Pulse Ox 112/74 12/31/17 17:19 - REVIEWED ASSESSMENTS Nursing Assessment Reviewed: Yes Vitals Reviewed: Yes General Adult Physical Exam - PHYSICAL EXAM GENERAL APPEARANCE: moderate distress EENT: eye inspection normal, pharynx normal NECK: normal inspection, supple RESPIRATORY: no resp distress, chest non-tender, breath sounds normal CVS: reg rate & rhythm, heart sounds normal BACK: normal inspection SKIN: warm/dry, normal color EXTREMITIES: non-tender, normal range of motion, no evidence of injury NEURO: oriented X3, CN's nml as tested, motor nml, sensation nml Discharge Clincal Impression: Migraine Qualifiers: Migraine type: without aura Status migrainosus presence: without status migrainosus Intractability: not intractable Qualified Code(s): G43.009 - Migraine without aura, not intractable, without status migrainosus Referrals: Milo Osei MD [Primary Care Provider] - 2 Days Condition: Stable Decision to Admit: NO Decision Time: 19:42
[2018-02-20] MEDS ORDERED: NALBUPHINE HCL 10 MG/1 ML IM STA ×2 (18:08→19:02)
[2018-02-20] MEDS ORDERED: DEXAMETHASONE SOD PHOS 4 MG/ML VIAL IM ONE (18:09)
[2018-02-20] MEDS ORDERED: ONDANSETRON HCL/PF 4 MG/ 2ML VIAL IM ONE (18:09)
[2018-02-20 20:02] VITALS: BP 131/62
== END 2018-02-20 19:53 ==
LOC: ED 17:45
DX: G43.009 Migraine without aura, not intractable, without status migrainosus (principal)
CPT/HCPCS: J1100; J2300; J2405; 96372; 99284

== ENCOUNTER 2018-04-01 14:44 | Emergency (ER) | payer OTHER ==
[2018-04-01] MEDS ORDERED: methylPREDNISolone SOD SUCC 125 MG/2 ML VIAL IM ONE (15:55)
[2018-04-01] MEDS ORDERED: cefTRIAXone SODIUM 1 GM VIAL ONE (16:06)
--- NOTE | 2018-04-01 16:13 | ED Physician Documentation ---
Headache - HPI Stated Complaint: headache Chief Complaint: Headache Additional Information: Patient with PMH of migraines presents to ED with headache with sensitivity to light and sound. She also complains of burning with urination. Timing: gradual New Gradual Onset: Yes Exposure To: none Severity: moderate Quality: similar to previous Associated Symptoms: denies: fever, chills Preceding Symptoms: denies: visual disturbance Exacerbated By: light, noise, movement Further Comments: no - ROS NEURO/PSYCH: denies: confusion, anxiety EYES/ENT: denies: sore throat, difficulty swallowing CVS/RESP: denies: chest pain, shortness of breath GI/: denies: abdominal pain, diarrhea MS/SKIN/LYMPH: denies: muscle aches, back pain all systems neg except as marked: Yes - PAST HX Medical History: migraines Surgical History: noncontributory Allergies/Adverse Reactions: Allergies Allergy/AdvReac Type Severity Reaction Status Date / Time No Known Allergies Allergy Verified 04/01/18 16:27 Home Medications: Ambulatory Orders Medication Instructions Recorded Methocarbamol 500 mg PO DAILY 10/13/17 Sulfamethoxazole/Trimethoprim 1 each PO DAILY 5 Days #10 tablet 04/01/18 [Bactrim Ds] - SOCIAL HX Smoking History: non-smoker Alcohol Use: none Drug Use: none - Family HX Family History: none - VITAL SIGNS Vital Signs: Vital Signs Temp Pulse Resp BP Pulse Ox 99.1 F 72 16 122/52 99 04/01/18 15:41 04/01/18 15:41 04/01/18 15:41 04/01/18 15:41 04/01/18 15:41 - REVIEWED ASSESSMENTS Nursing Assessment Reviewed: Yes Vitals Reviewed: Yes ED Results Lab/Radiology - Orders Orders: ED Orders Category Date Time Status UA W/MICRO IF INDICATED Routine Lab 04/01/18 15:57 Ordered Dexamethasone Sod Phosphate [Decadron] Med 04/01/18 16:08 Discontinued 8 mg IM NOW ONE Ketorolac Tromethamine [Toradol] Med 04/01/18 15:55 Discontinued 60 mg IM NOW ONE Lidocaine 2% 20ml Vial [Xylocaine] Med 04/01/18 15:55 Discontinued 5 mg IP NOW ONE Ondansetron HCl/Pf [Zofran 4 mg/2 ml] Med 04/01/18 15:55 Discontinued 4 mg IM NOW ONE cefTRIAXone SODIUM [Rocephin] Med 04/01/18 16:00 Ordered 1 gm IM QD methylPREDNISolone SOD SUCC [Solu-MEDROL] Med 04/01/18 15:55 Discontinued 125 mg IM NOW ONE Headache Physical Exam - EXAM General Appearance: no acute distress, alert EENT: no facial swelling, PERRL Neck: normal inspection, supple Respiratory: no resp distress, chest non-tender, breath sounds normal CVS: reg. rate & rhythm, heart sounds nml Abdomen: non-tender. No: tenderness Skin: no rash Extremitites: non-tender - NEURO/PSYCH Higher Functions: alert, oriented x3 Cranial: nml as tested, no evidence of acute CVA. denies: facial droop Cerebellar: nml as tested Sensorimotor: motor nml Discharge Clincal Impression: Migraine Qualifiers: Migraine type: without aura Status migrainosus presence: without status migrainosus Intractability: not intractable Qualified Code(s): G43.009 - Migraine without aura, not intractable, without status migrainosus Acute cystitis Qualifiers: Hematuria presence: without hematuria Qualified Code(s): N30.00 - Acute cystitis without hematuria Prescriptions: Sulfamethoxazole/Trimethoprim [Bactrim Ds] 1 each PO DAILY 5 Days #10 tablet Referrals: Milo Osei MD [Primary Care Provider] - 2 Days Condition: Stable Disposition: 01 HOME, SELF-CARE Decision to Admit: NO Date of Decison to Admit: 04/01/18 Decision Time: 16:48
[2018-04-01] MEDS: cefTRIAXone SODIUM 1 GM VIAL IM SCH (16:19)
[2018-04-01] MEDS: Lidocaine 2% 20ml Vial IP ONE (16:19)
[2018-04-01] MEDS: ONDANSETRON HCL/PF 4 MG/ 2ML VIAL IM ONE (16:19)
[2018-04-01] MEDS: KETOROLAC TROMETHAMINE 60 MG/2 ML VIAL IM ONE (16:20)
[2018-04-01] MEDS: DEXAMETHASONE SOD PHOS 4 MG/ML VIAL IM ONE (16:20)
[2018-04-01 17:01] VITALS: BP 112/50
[2018-04-02 07:13] LABS: OCCULT BLOOD,URINE 2+ (NEGATIVE); UROBILINOGEN URINE 0.2 Eu (0.2-1.0)
== END 2018-04-01 16:58 | disposition home or self-care (01) ==
LOC: ED 14:44
DX: G43.009 Migraine without aura, not intractable, without status migrainosus (principal); N30.00 Acute cystitis without hematuria
CPT/HCPCS: 81002; J0696; J1100; J1885; J2405; 96372; 99284

== ENCOUNTER 2018-04-10 13:30 | Emergency (ER) | payer OTHER ==
--- NOTE | 2018-04-10 13:41 | ED Physician Documentation ---
General Adult - HISTORIAN Historian: patient - HPI Stated Complaint: migraine Chief Complaint: Headache Onset: hours (2) Timing: still present Severity: mild Further Comments: yes (She states she started to have increased migraine symptoms . She is on a med for gout at this time. She has no other complaints. She states she tried all her own home meds for migraine. Mild nausea. No vomiting. No head injury) Last known Well Code/Unknown Code: Unknown - ROS CONST: other (gout flair ) CVS/RESP: denies: chest pain GI/: nausea - PAST HX Past History: other (migraine ) Allergies/Adverse Reactions: Allergies Allergy/AdvReac Type Severity Reaction Status Date / Time No Known Allergies Allergy Verified 04/01/18 16:27 Home Medications: Ambulatory Orders Medication Instructions Recorded Methocarbamol 500 mg PO DAILY 10/13/17 Sulfamethoxazole/Trimethoprim 1 each PO DAILY 5 Days #10 tablet 04/01/18 [Bactrim Ds] - SOCIAL HX Smoking History: non-smoker Alcohol Use: none Drug Use: none - FAMILY HX Family History: No - VITAL SIGNS Vital Signs: Vital Signs Temp Pulse Resp BP Pulse Ox 112/50 04/01/18 16:58 - REVIEWED ASSESSMENTS Nursing Assessment Reviewed: Yes Vitals Reviewed: Yes General Adult Physical Exam - PHYSICAL EXAM GENERAL APPEARANCE: no distress EENT: eye inspection normal, ENT inspection normal, no signs of dehydration NECK: normal inspection RESPIRATORY: no resp distress, chest non-tender, breath sounds normal CVS: reg rate & rhythm, heart sounds normal, equal pulses, no murmur ABDOMEN: soft, no distension BACK: normal inspection SKIN: warm/dry, normal color EXTREMITIES: non-tender NEURO: oriented X3, CN's nml as tested, motor nml, sensation nml, mood/affect nml Discharge Clincal Impression: Migraine Qualifiers: Migraine type: other Status migrainosus presence: without status migrainosus Intractability: not intractable Qualified Code(s): G43.809 - Other migraine, not intractable, without status migrainosus Referrals: Milo Osei MD [Primary Care Provider] - 2 Days Additional Instructions: 1. Meds as prescribed 2. Increase fluids 3. See PCP in 2-4 days 4. Return to ER for any concerns Condition: Stable Disposition: 01 HOME, SELF-CARE Decision to Admit: NO Date of Decison to Admit: 04/10/18 Decision Time: 15:09
[2018-04-10] MEDS: methylPREDNISolone SOD SUCC 125 MG/2 ML VIAL IM ONE (14:32)
[2018-04-10] MEDS: ONDANSETRON HCL/PF 4 MG/ 2ML VIAL ONE (14:33)
[2018-04-10] MEDS: ONDANSETRON HCL/PF 4 MG/ 2ML VIAL IM ONE (14:33)
[2018-04-10] MEDS: KETOROLAC TROMETHAMINE 30 MG/1ML VIAL ONE (14:33)
[2018-04-10] MEDS: methylPREDNISolone SOD SUCC 125 MG/2 ML VIAL ONE (14:33)
[2018-04-10] MEDS: KETOROLAC TROMETHAMINE 60 MG/2 ML VIAL IM ONE (14:33)
[2018-04-10 15:20] VITALS: BP 118/67
== END 2018-04-10 15:17 | disposition home or self-care (01) ==
LOC: ED 13:30
DX: G43.809 Other migraine, not intractable, without status migrainosus (principal)
CPT/HCPCS: J1885; J2405; J2930; 96372; 99284

== ENCOUNTER 2018-05-06 15:15 | Emergency (ER) | payer OTHER ==
--- NOTE | 2018-05-06 15:22 | ED Physician Documentation ---
General Adult - HISTORIAN Historian: patient - HPI Stated Complaint: migraine Chief Complaint: Headache Onset: hours (4) Timing: still present Severity: mild Further Comments: yes (history of migraines she states this is like the usual and she feels this is a weather trigger. She tried her home meds with no relief. States is 8/10 scale. She has some mild nausea. No head injury no other complaints. She has left sided headache today) Last known Well Code/Unknown Code: Unknown - ROS CONST: no problems - PAST HX Past History: hypertension, other (migraines ) Immunizations: UTD Allergies/Adverse Reactions: Allergies Allergy/AdvReac Type Severity Reaction Status Date / Time No Known Allergies Allergy Verified 05/06/18 16:12 Home Medications: Ambulatory Orders Medication Instructions Recorded Methocarbamol 500 mg PO DAILY 10/13/17 Allopurinol [Zyloprim] 100 mg PO D 05/06/18 - SOCIAL HX Smoking History: non-smoker Alcohol Use: none Drug Use: none - FAMILY HX Family History: No - VITAL SIGNS Vital Signs: Vital Signs Temp Pulse Resp BP Pulse Ox 118/67 04/10/18 15:17 - REVIEWED ASSESSMENTS Nursing Assessment Reviewed: Yes Vitals Reviewed: Yes Progress - Progress Progress: 1620: pain is improved per her report and she is asking to be discharged DG General Adult Physical Exam - PHYSICAL EXAM GENERAL APPEARANCE: no distress EENT: eye inspection normal, ENT inspection normal, no signs of dehydration NECK: normal inspection RESPIRATORY: no resp distress, chest non-tender, breath sounds normal CVS: reg rate & rhythm, heart sounds normal, equal pulses ABDOMEN: soft, no distension SKIN: warm/dry EXTREMITIES: non-tender NEURO: oriented X3, CN's nml as tested Discharge Clincal Impression: Migraine Qualifiers: Migraine type: unspecified Status migrainosus presence: without status migrainosus Intractability: not intractable Qualified Code(s): G43.909 - Migraine, unspecified, not intractable, without status migrainosus Referrals: Milo Osei MD [Primary Care Provider] - 2 Days Comments: 1. increase fluids 2. continue home meds 3. Follow up with PCP due to frequent headaches 4. Return to ER for any concerns Condition: Stable Disposition: 01 HOME, SELF-CARE Decision to Admit: NO Date of Decison to Admit: 05/06/18 Decision Time: 16:20
[2018-05-06] MEDS ORDERED: diphenhydrAMINE HCL 50 MG/ML VIAL IM ONE (15:55)
[2018-05-06] MEDS ORDERED: KETOROLAC TROMETHAMINE 60 MG/2 ML VIAL IM ONE (15:56)
[2018-05-06] MEDS ORDERED: ONDANSETRON HCL/PF 4 MG/ 2ML VIAL IM ONE (15:56)
[2018-05-06] MEDS ORDERED: methylPREDNISolone SOD SUCC 125 MG/2 ML VIAL IM ONE (15:56)
[2018-05-06 16:33] VITALS: BP 106/64
== END 2018-05-06 16:32 | disposition home or self-care (01) ==
LOC: ED 15:15
DX: G43.909 Migraine, unspecified, not intractable, without status migrainosus (principal)
CPT/HCPCS: 96372; 99282; 99284; J1200; J1885; J2405; J2930

== ENCOUNTER 2018-07-07 12:53 | Emergency (ER) | payer OTHER ==
--- NOTE | 2018-07-07 13:36 | ED Physician Documentation ---
General Adult - HISTORIAN Historian: patient - HPI Stated Complaint: migraine headache Chief Complaint: General Adult Onset: hours Timing: still present Severity: moderate Further Comments: yes (Pt is a 53 yo female with c/o migraine headache. Headache is similar to headaches she has had in the past. 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 Pt has had nausea and photophobia.) - ROS CONST: no problems EYES/ENT: other (photophobia) GI/: nausea MS/SKIN/LYMPH: none NEURO/PSYCH: headache - PAST HX Past History: other (migraine, fibromyalgia, OA, anxiety) Surgeries/Procedures: , cholecystectomy Allergies/Adverse Reactions: Allergies Allergy/AdvReac Type Severity Reaction Status Date / Time No Known Allergies Allergy Verified 07/07/18 14:11 Home Medications: Ambulatory Orders Medication Instructions Recorded Methocarbamol 500 mg PO DAILY 10/13/17 Allopurinol [Zyloprim] 100 mg PO D 05/06/18 - SOCIAL HX Smoking History: non-smoker - FAMILY HX Family History: No - VITAL SIGNS Vital Signs: Vital Signs Temp Pulse Resp BP Pulse Ox 106/64 05/06/18 16:30 - REVIEWED ASSESSMENTS Nursing Assessment Reviewed: Yes Vitals Reviewed: Yes Progress - Progress Progress: Toradol 30 mg IM Zofran 4 mg IM improved General Adult Physical Exam - PHYSICAL EXAM GENERAL APPEARANCE: moderate distress EENT: eye inspection normal, pharynx normal NECK: normal inspection, supple RESPIRATORY: no resp distress, chest non-tender, breath sounds normal CVS: reg rate & rhythm, heart sounds normal BACK: normal inspection SKIN: warm/dry, normal color EXTREMITIES: non-tender, normal range of motion, no evidence of injury NEURO: oriented X3, CN's nml as tested, motor nml, sensation nml Discharge Clincal Impression: Migraine Qualifiers: Migraine type: unspecified Status migrainosus presence: without status migrainosus Intractability: not intractable Qualified Code(s): G43.909 - Migraine, unspecified, not intractable, without status migrainosus Referrals: Milo Osei MD [Primary Care Provider] - Condition: Good Disposition: 01 HOME, SELF-CARE Decision to Admit: NO Decision Time: 14:36
[2018-07-07] MEDS ORDERED: KETOROLAC TROMETHAMINE 30 MG/1ML VIAL IM ONE (13:50)
[2018-07-07] MEDS ORDERED: ONDANSETRON HCL/PF 4 MG/ 2ML VIAL IM ONE (13:50)
[2018-07-07 14:58] VITALS: BP 125/55
== END 2018-07-07 14:57 | disposition home or self-care (01) ==
LOC: ED 12:53
DX: G43.909 Migraine, unspecified, not intractable, without status migrainosus (principal)
CPT/HCPCS: 96372; 99282; 99283; J1885; J2405

== ENCOUNTER 2018-07-24 16:03 | Emergency (ER) | payer OTHER ==
[2018-07-24] MEDS ORDERED: KETOROLAC TROMETHAMINE 60 MG/2 ML VIAL IM ONE (16:19)
[2018-07-24] MEDS ORDERED: DEXAMETHASONE SOD PHOS 4 MG/ML VIAL IM ONE (16:19)
[2018-07-24] MEDS ORDERED: diphenhydrAMINE HCL 50 MG/ML VIAL IM ONE (16:19)
[2018-07-24] MEDS ORDERED: ONDANSETRON HCL/PF 4 MG/ 2ML VIAL IM ONE (16:19)
--- NOTE | 2018-07-24 16:25 | ED Physician Documentation ---
Headache - HISTORIAN Historian: patient - HPI Chief Complaint: Headache Additional Information: Patient is a 53-year-old female that presents to the ER with her daughter. Patient c/o "migraine" that started 2 hours ago with nausea, sensitivity to light, noise and smell. She states that she tried taking her Tramadol with no relief. Pain is focused to the left side of her head. It feels like her typical migraines. She does not want an IV- she is just requesting IM meds and work excuse for today and tomorrow. Onset: hours (started 2 hours ago) Timing: gradual, still present New Gradual Onset: No (not new- same typical migraine) Exposure To: none Severity: moderate Quality: similar to previous, throbbing, pounding Associated Symptoms: sensitivity to light, nausea Preceding Symptoms: denies: visual disturbance, typical of prior aura(s) Exacerbated By: light, noise, movement Further Comments: no - ROS NEURO/PSYCH: denies: confusion EYES/ENT: denies: sore throat, difficulty swallowing CVS/RESP: denies: none, chest pain GI/: denies: abdominal pain MS/SKIN/LYMPH: denies: muscle aches, back pain all systems neg except as marked: Yes - PAST HX Medical History: hypertension, migraines, other (Anxiety, Panic attacks, Osteoarthritis) Surgical History: cholecystectomy Immunizations: UTD Allergies/Adverse Reactions: Allergies Allergy/AdvReac Type Severity Reaction Status Date / Time No Known Allergies Allergy Verified 07/07/18 14:11 Home Medications: Ambulatory Orders Medication Instructions Recorded RX: Methocarbamol 500 mg PO DAILY 10/13/17 RX: Allopurinol [Zyloprim] 100 mg PO D 05/06/18 - SOCIAL HX Smoking History: cigarettes Alcohol Use: none Drug Use: none - Family HX Family History: hypertension - VITAL SIGNS Vital Signs: Vital Signs Temp Pulse Resp BP Pulse Ox 97.9 F 73 16 120/53 97 07/24/18 17:30 07/24/18 17:30 07/24/18 17:30 07/24/18 17:30 07/24/18 17:30 - REVIEWED ASSESSMENTS Nursing Assessment Reviewed: Yes Vitals Reviewed: Yes ED Results Lab/Radiology - Orders Orders: ED Orders Category Date Time Status Dexamethasone Sodium Phosphate [Decadron] Med 07/24/18 16:19 Discontinued 4 mg IM NOW ONE Ketorolac Tromethamine [Toradol] Med 07/24/18 16:19 Discontinued 60 mg IM NOW ONE Ondansetron HCl/Pf [Zofran] Med 07/24/18 16:19 Discontinued 4 mg IM NOW ONE diphenhydrAMINE HCL [Benadryl] Med 07/24/18 16:19 Discontinued 25 mg IM NOW ONE Patient states pain is a 1-2/10 at discharge. [place] much better after IM injections Headache Physical Exam - EXAM General Appearance: alert, mild distress EENT: eyes nml inspection, PERRL, photophobia, nml ENT, pharynx nml Neck: normal inspection Respiratory: no resp distress, breath sounds normal CVS: reg. rate & rhythm, heart sounds nml Abdomen: non-tender, nml bowel sounds Skin: color nml, warm, dry Extremitites: normal range of motion - NEURO/PSYCH Higher Functions: alert, oriented x3, nml speech, mood/affect nml Cranial: no evidence of acute CVA Cerebellar: nml gait Sensorimotor: motor nml, sensation nml Discharge Clincal Impression: Migraine Referrals: Milo Osei MD [Primary Care Provider] - 2 Days Additional Instructions: Go home and rest- lay down in a dark, quiet room. Try to Avoid Triggers Increase fluid intake (no caffeine) Follow up with PCP in a couple of days if needed Condition: Good Disposition: 01 HOME, SELF-CARE Decision to Admit: NO Decision Time: 17:30
[2018-07-24 17:45] VITALS: BP 120/53
== END 2018-07-24 17:34 | disposition home or self-care (01) ==
LOC: ED 16:03
DX: G43.909 Migraine, unspecified, not intractable, without status migrainosus (principal)
CPT/HCPCS: 96372; 99282; 99283; J1100; J1200; J1885; J2405

== ENCOUNTER 2018-11-06 08:30 | Emergency (ER) | payer SELFPAY ==
[2018-09-29 15:11] VITALS: BP 135/73
[2018-11-26 09:45] LABS: APPEARANCE,URINE CLEAR (CLEAR); COLOR,URINE YELLOW (YELLOW); OCCULT BLOOD,URINE NEGATIVE (NEGATIVE); PH URINE 5.5 (5.0 - 8.0); UROBILINOGEN URINE 0.2 Eu (0.2-1.0)
[2018-11-26 09:56] LABS: BASOPHILS % 0.3 % (0.0-1.5); EOSINOPHILS % 2.5 % (0.0-6.8); MEAN CORPUSCULAR HEMOGLOBIN 28.4 pg (28.0-34.0); MONOCYTES % 3.9 % (0.0-11.0); eGFR (Non-African) > 60
== END 2018-11-06 12:37 ==
LOC: ED 08:30
DX: R10.2 Pelvic and perineal pain (principal); M54.5 Low back pain; M79.7 Fibromyalgia
CPT/HCPCS: 36415; 80053; 81002; 85025; 99283; 99284; S1016

== ENCOUNTER 2018-12-10 05:42 | Emergency (ER) | payer SELFPAY ==
--- NOTE | 2018-12-10 06:02 | ED Physician Documentation ---
Headache - HISTORIAN Historian: patient - HPI Chief Complaint: Headache Additional Information: Pain started yesterday, no precipitating cause. Get migraine headache every 2=3 months. If she takes tramadol and other medication it seem to help. It did not help at this time. Has nausea but no vomiting, no history of head trauma. Patient denies any sinus or allergy problems Onset: days ago (yesterday) Timing: gradual, still present Exposure To: none Severity: moderate Quality: similar to previous, throbbing, other (feels like scooping her eye out) Associated Symptoms: sensitivity to light, nausea. denies: fever, chills, sweating, vomiting, neck pain, stiffness, speech problems, weakness Preceding Symptoms: denies: visual disturbance Exacerbated By: light, noise, movement, other (smells) - ROS NEURO/PSYCH: denies: confusion, depression EYES/ENT: denies: sore throat, difficulty swallowing, sinus pain, drainage CVS/RESP: denies: chest pain, cough GI/: denies: abdominal pain - PAST HX Medical History: hypertension, other (generlized OA) Surgical History: cholecystectomy, other (c section) Immunizations: UTD Allergies/Adverse Reactions: Allergies Allergy/AdvReac Type Severity Reaction Status Date / Time No Known Allergies Allergy Verified 09/29/18 15:04 Home Medications: Ambulatory Orders Medication Instructions Recorded Methocarbamol 500 mg PO DAILY 10/13/17 Allopurinol [Zyloprim] 100 mg PO D 05/06/18 Amoxicillin/Potassium Clav 1 each PO BID 7 Days #14 tablet 09/29/18 [Augmentin 875-125 Tablet] Promethazine HCl [Phenergan] 25 mg PO Q6 PRN #30 tablet 09/29/18 - SOCIAL HX Smoking History: non-smoker Alcohol Use: none Drug Use: none - Family HX Family History: none, other (mother lung cnaer). denies: migraine headaches - VITAL SIGNS Vital Signs: Vital Signs Temp Pulse Resp BP Pulse Ox 98.2 F 68 18 170/90 100 12/10/18 05:42 12/10/18 05:42 12/10/18 05:42 12/10/18 05:42 12/10/18 05:42 - REVIEWED ASSESSMENTS Nursing Assessment Reviewed: Yes Vitals Reviewed: Yes ED Results Lab/Radiology - Orders Orders: ED Orders Category Date Time Status Ketorolac Tromethamine [Toradol] Med 12/10/18 06:08 Discontinued 60 mg IM NOW ONE Ondansetron HCl Rapdis [Zofran Odt] Med 12/10/18 06:09 Discontinued 4 mg PO NOW ONE diphenhydrAMINE HCL [Benadryl] Med 12/10/18 06:09 Discontinued 25 mg PO NOW ONE Headache Physical Exam - EXAM General Appearance: alert, moderate distress EENT: no facial swelling, eyes nml inspection, PERRL, pharynx nml. No: tender temporal artery, pain over sinuses Neck: normal inspection, thyroid normal, supple. No: lymphadenopathy Respiratory: no resp distress, chest non-tender, breath sounds normal. No: wheezes, rales, rhonchi CVS: reg. rate & rhythm, heart sounds nml. No: murmur, tachycardia Abdomen: non-tender, no organomegaly, nml bowel sounds, no distention, tenderness Skin: color nml, no rash Extremitites: non-tender, no edema - NEURO/PSYCH Higher Functions: alert, oriented x3, nml speech, mood/affect nml. denies: confused Cranial: nml as tested, no evidence of acute CVA Cerebellar: nml as tested Sensorimotor: motor nml, sensation nml Discharge Clincal Impression: Migraine Qualifiers: Migraine type: without aura Status migrainosus presence: without status migrainosus Intractability: not intractable Qualified Code(s): G43.009 - Migrain e without aura, not intractable, without status migrainosus Referrals: Milo Osei MD [Primary Care Provider] - 2 Days Additional Instructions: Home and rest. Take pain medication as needed. Follow instruction sheet. If you have any further problems to return to the ED or see your PCP. Condition: Stable Disposition: 01 HOME, SELF-CARE Decision to Admit: NO Date of Decison to Admit: 12/10/18 Decision Time: 06:16
[2018-12-10] MEDS: KETOROLAC TROMETHAMINE 60 MG/2 ML VIAL IM ONE (06:20)
[2018-12-10] MEDS: ONDANSETRON HCL 4 MG TAB.RAPDIS PO ONE (06:20)
[2018-12-10] MEDS: diphenhydrAMINE HCL 25 MG TABLET PO ONE (06:20)
[2018-12-10 07:12] VITALS: BP 140/68
== END 2018-12-10 06:55 | disposition home or self-care (01) ==
LOC: ED 05:42
DX: G43.909 Migraine, unspecified, not intractable, without status migrainosus (principal)
CPT/HCPCS: 96372; 99282; 99284; A9270; J1885; Q0163

== ENCOUNTER 2018-12-12 11:59 | Emergency (ER) | payer SELFPAY ==
--- NOTE | 2018-12-12 12:13 | ED Physician Documentation ---
Headache - HISTORIAN Historian: patient - HPI Stated Complaint: headache Chief Complaint: Headache Additional Information: Patient is a 53-year-old female who presents the ER with c/o headache- she was seen in the ER 2 days ago and treated- she states her headache was much better after treatment but never fully went away and now states that headache is back and rates 10/10. She states that headache is the same as the rest- denies any seasonal allergies or congestion. Has nausea and photophobia. Denies any mental status changes or head injuries. Onset: days ago (3) Timing: gradual, still present, worse New Gradual Onset: No Exposure To: none Severity: moderate Quality: similar to previous, pain, throbbing, sharp Associated Symptoms: sensitivity to light, nausea. denies: fever, chills, problems with vision Preceding Symptoms: denies: visual disturbance Exacerbated By: light, noise, movement, position - ROS NEURO/PSYCH: denies: confusion EYES/ENT: denies: sinus pain CVS/RESP: none GI/: denies: abdominal pain MS/SKIN/LYMPH: denies: rash - PAST HX Medical History: hypertension, migraines, other (OA) Surgical History: cholecystectomy, other () Allergies/Adverse Reactions: Allergies Allergy/AdvReac Type Severity Reaction Status Date / Time No Known Allergies Allergy Verified 12/12/18 12:11 Home Medications: Ambulatory Orders Medication Instructions Recorded Methocarbamol 500 mg PO DAILY 10/13/17 Allopurinol [Zyloprim] 100 mg PO D 05/06/18 - SOCIAL HX Smoking History: less than 1 pack/day Alcohol Use: none Drug Use: none - Family HX Family History: none - VITAL SIGNS Vital Signs: Vital Signs Temp Pulse Resp BP Pulse Ox 64 14 157/82 99 12/12/18 12:54 12/12/18 12:54 12/12/18 12:54 12/12/18 12:54 - REVIEWED ASSESSMENTS Nursing Assessment Reviewed: Yes Vitals Reviewed: Yes Progress - Progress Progress: 12:50 patient has received her meds- she would like to go home before meds take effect. She normally goes home soon after injections so she can sleep. ED Results Lab/Radiology - Orders Orders: ED Orders Category Date Time Status Ketorolac Tromethamine [Toradol] Med 12/12/18 12:10 Discontinued 60 mg IM NOW ONE Promethazine HCl [Phenergan] Med 12/12/18 12:10 Discontinued 25 mg IM Now ONE diphenhydrAMINE HCL [Benadryl] Med 12/12/18 12:10 Discontinued 50 mg IM NOW ONE methylPREDNISolone SOD SUCC [SOLU-Medrol] Med 12/12/18 12:10 Discontinued 125 mg IM NOW ONE Headache Physical Exam - EXAM General Appearance: mild distress EENT: eyes nml inspection, PERRL Neck: normal inspection, supple Respiratory: breath sounds normal CVS: heart sounds nml Skin: color nml Extremitites: normal range of motion - NEURO/PSYCH Higher Functions: alert, oriented x3, nml speech, mood/affect nml Cranial: no evidence of acute CVA Sensorimotor: motor nml, sensation nml Discharge Clincal Impression: Migraine Referrals: Milo Osei MD [Primary Care Provider] - 2 Days Additional Instructions: Home and Rest Follow up with PCP this week Condition: Good Disposition: 01 HOME, SELF-CARE Decision to Admit: NO Decision Time: 12:52
[2018-12-12] MEDS: diphenhydrAMINE HCL 50 MG/ML VIAL IM ONE (12:35)
[2018-12-12] MEDS: PROMETHAZINE HCL 25 MG/ML VIAL IM ONE (12:35)
[2018-12-12] MEDS: methylPREDNISolone SOD SUCC 125 MG/2 ML VIAL IM ONE (12:35)
[2018-12-12] MEDS: KETOROLAC TROMETHAMINE 60 MG/2 ML VIAL IM ONE (12:35)
[2018-12-12 12:56] VITALS: BP 157/82
== END 2018-12-12 12:54 | disposition home or self-care (01) ==
LOC: ED 11:59
DX: G43.909 Migraine, unspecified, not intractable, without status migrainosus (principal)
CPT/HCPCS: 96372; 99283; 99284; J1200; J1885; J2550; J2930

== ENCOUNTER 2019-02-07 09:05 | Emergency (ER) | payer MEDICARE, OTHER ==
--- NOTE | 2019-02-07 11:17 | ED Physician Documentation ---
General Adult - HISTORIAN Historian: patient - HPI Stated Complaint: Migraine Chief Complaint: General Adult Onset: days ago (1) Timing: still present Severity: moderate Further Comments: yes (Pt is a 53 yo female with c/o migraine headache and toothache. Headache is similar to previous migraines. Pt has had photophobia, nausea.) - ROS CONST: no problems EYES/ENT: other (dental pain) CVS/RESP: none GI/: none MS/SKIN/LYMPH: none NEURO/PSYCH: headache - PAST HX Past History: other (Anxiety/Depression, migraine) Surgeries/Procedures: , cholecystectomy Allergies/Adverse Reactions: Allergies Allergy/AdvReac Type Severity Reaction Status Date / Time No Known Allergies Allergy Verified 02/07/19 10:22 Home Medications: Ambulatory Orders Medication Instructions Recorded Methocarbamol 500 mg PO DAILY 10/13/17 Allopurinol [Zyloprim] 100 mg PO D 05/06/18 - SOCIAL HX Smoking History: non-smoker - FAMILY HX Family History: No - VITAL SIGNS Vital Signs: Vital Signs Temp Pulse Resp BP Pulse Ox 97.1 F L 88 17 152/88 94 02/07/19 09:10 02/07/19 09:10 02/07/19 09:10 02/07/19 09:10 02/07/19 09:10 - REVIEWED ASSESSMENTS Nursing Assessment Reviewed: Yes Vitals Reviewed: Yes Progress - Progress Progress: Dexamethasone 4 mg IM improved Rx Amoxicillin 500 mg tid x 10 days, 1 RF ED Results Lab/Radiology - Orders Orders: ED Orders Category Date Time Status Dexamethasone Sodium Phosphate [Decadron] Med 02/07/19 11:13 Discontinued 4 mg IM NOW ONE General Adult Physical Exam - PHYSICAL EXAM GENERAL APPEARANCE: moderate distress EENT: eye inspection normal, pharynx normal NECK: normal inspection, supple RESPIRATORY: no resp distress, chest non-tender, breath sounds normal CVS: reg rate & rhythm, heart sounds normal ABDOMEN: soft, no organomegaly, normal bowel sounds BACK: normal inspection SKIN: warm/dry, normal color EXTREMITIES: non-tender, normal range of motion, no evidence of injury NEURO: oriented X3, CN's nml as tested, motor nml, sensation nml Discharge Clincal Impression: dental pain Migraine Qualifiers: Migraine type: unspecified Status migrainosus presence: without status migrainosus Intractability: not intractable Qualified Code(s): G43.909 - Migraine, unspecified, not intractable, without status migrainosus Referrals: Milo Osei MD [Primary Care Provider] - Condition: Stable Disposition: 01 HOME, SELF-CARE Decision to Admit: NO Decision Time: 11:28
[2019-02-07] MEDS: DEXAMETHASONE SOD PHOS 4 MG/ML VIAL IM ONE (11:21)
[2019-02-07 12:44] VITALS: BP 120/53
== END 2019-02-07 11:30 | disposition home or self-care (01) ==
LOC: ED 09:05
DX: G43.909 Migraine, unspecified, not intractable, without status migrainosus (principal)
CPT/HCPCS: 96372; 99282; 99284; J1100

== ENCOUNTER 2019-05-19 10:15 | Emergency (ER) | payer MEDICARE, OTHER ==
[2019-05-19 10:31] VITALS: BP 123/70
--- NOTE | 2019-05-19 10:31 | ED Physician Documentation ---
Ear Complaints - HISTORIAN Historian: patient - HPI Stated Complaint: right ear pain x 2 weeks Chief Complaint: Ear Complaints Additional Information: Patient presents to ED with a 1-2 week history of right ear pain. Patient repo rts during physical exam she is getting ready to have a panic attack. Patient denies cough, nasal congestion, headache or sputum production. Timing: still present Location of Pain: R ear Severity: moderate Associated Symptoms: sharp pain, dull pain, aching. denies: hearing loss - ROS CONST: no problems CVS/RESP: denies: chest pain, shortness of breath GI/: denies: nausea MS/SKIN/LYMPH: none NEURO/PSYCH: none - PAST HX Past History: none Allergies/Adverse Reactions: Allergies Allergy/AdvReac Type Severity Reaction Status Date / Time cephalexin [From Keflex] Allergy Verified 05/19/19 10:28 Home Medications: Ambulatory Orders Medication Instructions Recorded Methocarbamol 500 mg PO DAILY 10/13/17 Allopurinol [Zyloprim] 100 mg PO D 05/06/18 Neomycin/Polymyxin B/Hydrocort 4 drop OT Q8 7 Days #1 bottle 05/19/19 [Cortisporin Otic] Triamterene/Hydrochlorothiazid 1 each PO DAILY 05/19/19 [Triamterene-Hctz 37.5-25 mg Cp] - SOCIAL HX Smoking History: non-smoker Alcohol Use: none Drug Use: none - FAMILY HX Family History: No - VITAL SIGNS Vital Signs: Vital Signs Temp Pulse Resp BP Pulse Ox 120/53 02/07/19 11:30 - REVIEWED ASSESSMENTS Nursing Assessment Reviewed: Yes Vitals Reviewed: Yes Ear Complaint Physical Exam - EXAM General Appearance: no acute distress, alert Ear: pain w movement of auricl, right, swelling of canal Mouth/Throat: lips nml, pharynx nml Nose: nml inspection Head/Neck: atraumatic, neck nml inspection Eye: PERRL Resp/CVS: chest non-tender, breath sounds nml Abdomen: non-tender Skin: nml color Neuro/Psych: oriented x3, mood/affect nml Discharge Clincal Impression: Panic attack Right otitis externa Qualifiers: Otitis externa type: swimmer's ear Chronicity: acute Qualified Code(s): H60.331 - Swimmer's ear, right ear Prescriptions: Neomycin/Polymyxin B/Hydrocort [Cortisporin Otic] 4 drop OT Q8 7 Days #1 bottle Referrals: Milo Osei MD [Primary Care Provider] - 2 Days Additional Instructions: 1. Ear drops to right ear x 7 days. 2. Resume home meds as previously prescribed 3. Follow up with PCP within 1 week 4. Return to ER for new or worsening symptoms Condition: Stable Disposition: 01 HOME, SELF-CARE Decision to Admit: NO Date of Decison to Admit: 05/19/19 Decision Time: 10:35
[2019-05-19] MEDS ORDERED: LORazepam 0.5 MG TABLET PO ONE (10:34)
== END 2019-05-19 10:42 | disposition home or self-care (01) ==
LOC: ED 10:15
DX: H60.331 Swimmer's ear, right ear (principal); F41.0 Panic disorder [episodic paroxysmal anxiety]
CPT/HCPCS: 99283; 99284

== ENCOUNTER 2019-05-23 13:54 | Emergency (ER) | payer MEDICARE, OTHER ==
[2019-05-23] MEDS ORDERED: ONDANSETRON HCL/PF 4 MG/ 2ML VIAL IM ONE (14:07)
[2019-05-23] MEDS ORDERED: KETOROLAC TROMETHAMINE 60 MG/2 ML VIAL IM ONE (14:07)
--- NOTE | 2019-05-23 14:10 | ED Physician Documentation ---
Headache - HISTORIAN Historian: patient - HPI Stated Complaint: Migraine Chief Complaint: Headache Additional Information: Patient presents to ED with a 90 minute history of migraine associated with nausea. Patient has a history of migraines and fibromyalgia. Onset: minutes (90) Timing: still present New Gradual Onset: No Exposure To: none Severity: moderate Quality: similar to previous, sharp Associated Symptoms: sensitivity to light, nausea. denies: fever Preceding Symptoms: denies: visual disturbance Exacerbated By: light, noise - ROS NEURO/PSYCH: denies: confusion EYES/ENT: denies: difficulty swallowing CVS/RESP: denies: chest pain, shortness of breath GI/: denies: abdominal pain MS/SKIN/LYMPH: denies: muscle aches - PAST HX Medical History: migraines, other (fibromyalgia) Surgical History: noncontributory Allergies/Adverse Reactions: Allergies Allergy/AdvReac Type Severity Reaction Status Date / Time cephalexin [From Keflex] Allergy Verified 05/23/19 14:10 Home Medications: Ambulatory Orders Medication Instructions Recorded Methocarbamol 500 mg PO DAILY 10/13/17 Allopurinol [Zyloprim] 100 mg PO D 05/06/18 Neomycin/Polymyxin B/Hydrocort 4 drop OT Q8 7 Days #1 bottle 05/19/19 [Cortisporin Otic] Triamterene/Hydrochlorothiazid 1 each PO DAILY 05/19/19 [Triamterene-Hctz 37.5-25 mg Cp] - SOCIAL HX Smoking History: non-smoker Alcohol Use: none Drug Use: none - Family HX Family History: none - VITAL SIGNS Vital Signs: Vital Signs Temp Pulse Resp BP Pulse Ox 63 18 149/94 98 05/23/19 14:03 05/23/19 14:03 05/23/19 14:03 05/23/19 14:03 - REVIEWED ASSESSMENTS Nursing Assessment Reviewed: Yes Vitals Reviewed: Yes ED Results Lab/Radiology - Orders Orders: ED Orders Category Date Time Status Ketorolac Tromethamine [Toradol] Med 05/23/19 14:07 Discontinued 60 mg IM NOW ONE Ondansetron HCl/Pf [Zofran] Med 05/23/19 14:07 Discontinued 4 mg IM NOW ONE Headache Physical Exam - EXAM General Appearance: no acute distress EENT: PERRL, other (right ear canal much improved from previous, redness resolved) Neck: supple Respiratory: no resp distress, chest non-tender, breath sounds normal CVS: reg. rate & rhythm, heart sounds nml Abdomen: non-tender, nml bowel sounds. No: tenderness Skin: color nml, no rash Extremitites: non-tender, normal range of motion, no evidence of injury, no edema - NEURO/PSYCH Higher Functions: alert, oriented x3, nml speech, mood/affect nml Cranial: nml as tested, no evidence of acute CVA Cerebellar: nml as tested Sensorimotor: motor nml, sensation nml Discharge Clincal Impression: Migraine Qualifiers: Migraine type: without aura Status migrainosus presence: without status migrainosus Intractability: not intractable Qualified Code(s): G43.009 - Migraine without aura, not intractable, without status migrainosus Referrals: Milo Osei MD [Primary Care Provider] - 2 Days Additional Instructions: 1. Avoid migraine triggers 2. Drink plenty of fluids to maintain proper hydration 3. Follow up with PCP within 1 week 4. Return to ER for new or worsening symptoms Condition: Stable Disposition: 01 HOME, SELF-CARE Decision to Admit: NO Date of Decison to Admit: 05/23/19 Decision Time: 15:32
[2019-05-23 15:38] VITALS: BP 126/74
== END 2019-05-23 15:33 | disposition home or self-care (01) ==
LOC: ED 13:54
DX: G43.009 Migraine without aura, not intractable, without status migrainosus (principal)
CPT/HCPCS: 96372; 99282; 99284; J1885; J2405